=== PATIENT | female | born 1980 | race Hispanic/Latino ===

== ENCOUNTER 2018-02-14 12:09 | Emergency (ER) | payer MEDICAID, OTHER ==
[2018-02-14 12:58] LABS: BASOPHILS % (AUTO) 0.9 % (0.0-5.0); EOSINOPHILS % (AUTO) 0.5 % (0.0-8.0); HEMATOCRIT 42.8 % (36-48); LYMPHOCYTES % (AUTO) 23.4 % (21.0-51.0); MEAN CORPUSCULAR HEMOGLOBIN 26.6 pg (27.0-33.0); MEAN CORPUSCULAR HGB CONC 32.6 g/dL (32.0-36.0); MEAN CORPUSCULAR VOLUME 81.7 fL (79-99); MONOCYTES % (AUTO) 4.8 % (3.0-13.0); NEUTROPHILS % (AUTO) 70.4 % (40.0-77.0); PLATELET COUNT (AUTO) 391 K/uL (130-400); RED BLOOD CELL COUNT(AUTO) 5.24 MIL/uL (4.00-5.50); RED CELL DISTRIBUTION WIDTH 14.4 % (11.0-15.5); WHITE BLOOD COUNT (AUTO) 9.4 K/uL (4.8-10.8)
[2018-02-14 13:35] LABS: APPEARANCE,URINE Turbid (CLEAR); BILIRUBIN,URINE Negative (NEGATIVE); COLOR,URINE Yellow (YELLOW); GLUCOSE, URINE (UA) Negative (NEGATIVE); KETONES,URINE Negative (NEGATIVE); LEUKOCYTE ESTERASE ,URINE Trace (NEGATIVE); NITRATE,URINE Negative (NEGATIVE); OCCULT BLOOD,URINE Large (NEGATIVE); PROTEIN,URINE POS 1+ (NEGATIVE)
[2018-02-14 13:48] LABS: AMORPHOUS SEDIMENT,UR Few /LPF (None Seen); BACTERIA,URINE Few /HPF (None Seen); SQUAMOUS EPITHELIAL CELL,UR Rare /HPF (0-2)
[2018-02-14 14:02] LABS: CREATININE 0.7 mg/dL (0.5-1.5); POTASSIUM 4.2 mmol/L (3.5-5.1)
[2018-02-14 14:07] LABS: ALBUMIN 4.4 g/dL (3.5-5.0); BILIRUBIN,TOTAL 0.4 mg/dL (0.2-1.0); TOTAL PROTEIN, SERUM 8.9 g/dL (6.0-8.3)
[2018-02-14] MEDS ORDERED: MECLIZINE HCL 25 MG TABLET ONE (14:26)
[2018-02-14] MEDS ORDERED: ONDANSETRON ODT 4 MG TAB ONE (14:26)
== END 2018-02-14 14:37 | disposition home or self-care (01) ==
LOC: EDH 12:09
DX: N93.8 Other specified abnormal uterine and vaginal bleeding (principal)
CPT/HCPCS: 36415; 80053; 81001; 84702; 85025; 86900; 86901

== ENCOUNTER 2018-12-08 13:54 | Observation (INO) | payer MEDICAID ==
[~2018-12-08] VITALS: Ht 160 cm; Wt 71.7 kg
[2018-12-08] MEDS ORDERED: ONDANSETRON HCL 4 MG/2 ML VIAL ONE (14:24)
[2018-12-08] MEDS ORDERED: SODIUM CHLORIDE 0.9% 1000ML 1,000 ML IV ONE (14:24)
[2018-12-08 14:31] LABS: BASOPHILS % (AUTO) 0.1 % (0.0-5.0); EOSINOPHILS % (AUTO) 0.1 % (0.0-8.0); HEMATOCRIT 37.9 % (36-48); LYMPHOCYTES % (AUTO) 4.2 % (21.0-51.0); MEAN CORPUSCULAR HEMOGLOBIN 27.3 pg (27.0-33.0); MEAN CORPUSCULAR HGB CONC 32.8 g/dL (32.0-36.0); MEAN CORPUSCULAR VOLUME 83.1 fL (79-99); MONOCYTES % (AUTO) 3.9 % (3.0-13.0); NEUTROPHILS % (AUTO) 91.7 % (40.0-77.0); PLATELET COUNT (AUTO) 277 K/uL (130-400); RED BLOOD CELL COUNT(AUTO) 4.56 MIL/uL (4.00-5.50); RED CELL DISTRIBUTION WIDTH 16.4 % (11.0-15.5); WHITE BLOOD COUNT (AUTO) 16.1 K/uL (4.8-10.8)
[2018-12-08 14:34] LABS: BILIRUBIN,URINE Negative (NEGATIVE); COLOR,URINE Dark Yellow (YELLOW); GLUCOSE, URINE (UA) Negative (NEGATIVE); KETONES,URINE >=80 mg/dL (NEGATIVE); LEUKOCYTE ESTERASE ,URINE Moderate (NEGATIVE); NITRATE,URINE Negative (NEGATIVE); OCCULT BLOOD,URINE Moderate (NEGATIVE); PROTEIN,URINE POS 1+ (NEGATIVE)
[2018-12-08 14:37] LABS: APPEARANCE,URINE CLOUDY (CLEAR)
[2018-12-08 14:38] LABS: BACTERIA,URINE Few /HPF (None Seen); RBC,URINE None Seen /HPF (0-1)
[2018-12-08 14:46] LABS: CREATININE 0.7 mg/dL (0.5-1.5); POTASSIUM 3.8 mmol/L (3.5-5.1)
[2018-12-08 14:51] LABS: ALBUMIN 3.7 g/dL (3.5-5.0); BILIRUBIN,TOTAL 0.7 mg/dL (0.2-1.0)
[2018-12-08 16:10] VITALS: BP 133/73
[2018-12-08] MEDS ORDERED: ACETAMINOPHEN-CODEINE 300/30MG TAB PO PRN (16:15)
[2018-12-08] MEDS ORDERED: ACETAMINOPHEN EXTRA STRENGTH 500 MG TABLET PO PRN (16:15)
[2018-12-08] MEDS ORDERED: CEFTRIAXONE SODIUM 1 GM IVP SCH (17:00)
[2018-12-08 17:03] LABS: CREATININE 0.7 mg/dL (0.5-1.5); POTASSIUM 4.2 mmol/L (3.5-5.1)
[2018-12-08] MEDS: ACETAMINOPHEN-CODEINE 300/30MG TAB PO PRN (18:04)
[2018-12-08] MEDS: DEXTROSE 5%-LACTATED RINGERS 1,000 ML IV SCH (18:13)
[2018-12-08 20:06] VITALS: BP 105/62
[2018-12-08 23:38] VITALS: BP 111/67
[2018-12-09] MEDS: ACETAMINOPHEN-CODEINE 300/30MG TAB PO PRN ×3 (00:31→23:21)
[2018-12-09] MEDS: DEXTROSE 5%-LACTATED RINGERS 1,000 ML IV SCH ×5 (00:31→23:20)
[2018-12-09 05:54] VITALS: BP 98/62
[2018-12-09 07:35] VITALS: BP 125/81
[2018-12-09] MEDS: PRENATAL VITAMIN RX TABLET PO SCH (08:57)
[2018-12-09 11:40] VITALS: BP 120/59
[2018-12-09] MEDS ORDERED: CEFTRIAXONE SODIUM 1 GM IVP SCH (15:00)
[2018-12-09 15:37] VITALS: BP 124/80
[2018-12-09 19:38] VITALS: BP 104/67
[2018-12-10 01:17] VITALS: BP 132/81
[2018-12-10 05:45] VITALS: BP 108/59
[2018-12-10] MEDS: ACETAMINOPHEN-CODEINE 300/30MG TAB PO PRN (05:48)
[2018-12-10 07:11] LABS: BASOPHILS % (AUTO) 0.2 % (0.0-5.0); EOSINOPHILS % (AUTO) 2.4 % (0.0-8.0); HEMATOCRIT 30.4 % (36-48); LYMPHOCYTES % (AUTO) 20.6 % (21.0-51.0); MEAN CORPUSCULAR HEMOGLOBIN 27.5 pg (27.0-33.0); MEAN CORPUSCULAR HGB CONC 32.9 g/dL (32.0-36.0); MEAN CORPUSCULAR VOLUME 83.6 fL (79-99); MONOCYTES % (AUTO) 8.6 % (3.0-13.0); NEUTROPHILS % (AUTO) 68.2 % (40.0-77.0); PLATELET COUNT (AUTO) 228 K/uL (130-400); RED BLOOD CELL COUNT(AUTO) 3.64 MIL/uL (4.00-5.50); RED CELL DISTRIBUTION WIDTH 16.5 % (11.0-15.5); WHITE BLOOD COUNT (AUTO) 8.1 K/uL (4.8-10.8)
[2018-12-10 08:13] VITALS: BP 111/72
[2018-12-10] MEDS: PRENATAL VITAMIN RX TABLET PO SCH (09:33)
[2018-12-10 11:33] VITALS: BP 103/59
--- NOTE | 2018-12-10 12:25 | NUR ---
DISCHARGE PT LEFT UNIT VIA WHEELCHAIR, ACCOMPANIED BY SIGNIFICANT OTHER. DENIED PAIN AND HAD NO COMPLAINTS. TRANSPORTED BY PERSONAL VEHICLE.
== END 2018-12-10 12:25 | disposition home or self-care (01) ==
LOC: EDH 13:54 → EDHIP 13:55 → WSH 16:10
PROVIDERS: ADMIT Specialist; ATTEND Specialist
DX: O23.01 Infections of kidney in pregnancy, first trimester (principal); N12 Tubulo-interstitial nephritis, not specified as acute or chronic; O09.523 Supervision of elderly multigravida, third trimester; O21.2 Late vomiting of pregnancy; Z3A.09 9 weeks gestation of pregnancy; Z23 Encounter for immunization
CPT/HCPCS: 36415 ×2; 76801; 80053; 81001; 82948; 83605 ×2; 85025 ×2; 87077; 87088; 87186; 87804 ×2; 96361 ×3; 96374; 99284; G0008; G0378 ×46; J0696; J2405; J7030; Q2035; 80048

== ENCOUNTER 2025-06-22 09:36 | Emergency (ER) | payer MEDICAID, OTHER ==
[~2025-06-22] VITALS: Ht 160 cm; Wt 75.7 kg
--- NOTE | 2025-06-22 11:30 | HMCIMG ---
EXAM: CR Cervical spine, 4 View. CLINICAL HISTORY: neck and upper back pain COMPARISON: None provided. FINDINGS: BONES: No acute fracture or aggressive appearing osseous lesion. DISCS/DEGENERATIVE CHANGES: Moderate-sized anterior osteophytes and uncovertebral joint hypertrophy at C5-C6. Mild disc disease at C5-C6. Vertebral body heights are maintained without displaced fracture. There is no listhesis. Prevertebral soft tissues are within normal limits. SOFT TISSUES: No prevertebral soft tissue swelling. The visualized lung apices are clear. IMPRESSION: 1. No acute osseous injury. 2. Moderate degenerative changes at C5-C6 with anterior osteophytes, uncovertebral joint hypertrophy, and mild disc disease. /[place]
--- NOTE | 2025-06-22 11:31 | HMCIMG ---
EXAM: CR Thoracic Spine, 3 View. CLINICAL HISTORY: neck and upper back pain COMPARISON: None provided. FINDINGS: BONES: No acute fracture or aggressive appearing osseous lesion. DISCS / DEGENERATIVE CHANGES: Mild thoracic spondylosis evident by small anterior osteophytes and syndesmophytes at multiple levels. There is mild multilevel degenerative disc disease. SOFT TISSUES: The paraspinal soft tissue lines are unremarkable. The visualized lungs are clear. MISCELLANEOUS: Visualization of the upper thoracic spine is limited on the lateral view by overlying structures. IMPRESSION: 1. No acute osseous injury. 2. Mild thoracic spondylosis and multilevel degenerative disc disease. /[place]
[2025-06-22] MEDS: HYDROcodone/APAP 5/325 1 TAB TABLET PO STA (11:32)
[2025-06-22] MEDS ORDERED: METH-662 PO (11:43)
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
[2025-06-22 11:56] VITALS: BP 151/87; PULSE 80; RESP 16; TEMP 98.9; O2SAT 97
== END 2025-06-22 12:04 | disposition home or self-care (01) ==
LOC: EDH 09:36
DX: S13.4XXA Sprain of ligaments of cervical spine, initial encounter (principal); M54.50 Low back pain, unspecified; I10 Essential (primary) hypertension; V89.2XXA Person injured in unspecified motor-vehicle accident, traffic, initial encounter; Y93.89 Activity, other specified; Y92.89 Other specified places as the place of occurrence of the external cause; Y99.8 Other external cause status
CPT/HCPCS: 99284; 72040; 72070; 96372; J1885